=== PATIENT | male | born 1995 | race Caucasian/White ===

== ENCOUNTER 2019-08-11 09:06 | Emergency (ER) | payer MEDICAID, OTHER ==
[~2019-08-11] VITALS: Ht 157.5 cm; Wt 101.0 kg
[2019-08-11 09:36] VITALS: BP 156/88
== END 2019-08-11 11:32 | disposition home or self-care (01) ==
LOC: ER 09:06
DX: B07.0 Plantar wart (principal); M79.672 Pain in left foot; W22.8XXA Striking against or struck by other objects, initial encounter; Y93.89 Activity, other specified; Y92.89 Other specified places as the place of occurrence of the external cause; Y99.8 Other external cause status
CPT/HCPCS: 73630; 99283